=== PATIENT | female | born 1995 | race Hispanic/Latino ===

== ENCOUNTER 2018-10-30 22:25 | Emergency (ER) | payer BC, OTHER | END 2018-10-30 23:10 | disposition home or self-care (01) | LOC: EDH 22:25 | DX: F41.0 Panic disorder [episodic paroxysmal anxiety] (principal); R20.2 Paresthesia of skin | CPT/HCPCS: 99281 ==

== ENCOUNTER 2022-01-15 07:06 | Inpatient (IN) | payer MEDICAID ==
[~2022-01-15] VITALS: Ht 152.4 cm; Wt 87.5 kg
[2022-01-15] MEDS ORDERED: AMPICILLIN 2GM+NS 100ML 100 ML IV SCH (08:05)
[2022-01-15 08:13] VITALS: BP 125/67
[2022-01-15 08:22] LABS: HEMATOCRIT 37.7 % (36-48); MEAN CORPUSCULAR HEMOGLOBIN 29.2 pg (27.0-33.0); MEAN CORPUSCULAR HGB CONC 33.2 g/dL (32.0-36.0); MEAN CORPUSCULAR VOLUME 88.1 fL (79-99); RED BLOOD CELL COUNT(AUTO) 4.28 MIL/uL (4.00-5.50); RED CELL DISTRIBUTION WIDTH 13.9 % (11.0-15.5); WHITE BLOOD COUNT (AUTO) 10.5 K/uL (4.8-10.8)
[2022-01-15] MEDS ORDERED: OXYTOCIN-LR 20 UNITS/1000 ML 1,000 ML IV SCH (08:30)
[2022-01-15] MEDS: LACTATED RINGERS 1000ML 1,000 ML IV PRN ×3 (08:32→17:35)
[2022-01-15 10:12] LABS: RAPID PLASMA REAGIN NONREACTIVE (NONREACTIVE)
[2022-01-15] MEDS ORDERED: MEPERIDINE-PF 50 MG/ML SYG ONE (11:47)
[2022-01-15] MEDS ORDERED: NALOXONE HCL 0.4 MG/1 ML ML IV PRN (12:00)
[2022-01-15] MEDS ORDERED: LACTATED RINGERS 500 ML 500 ML IV PRN (12:00)
[2022-01-15] MEDS ORDERED: MEPERIDINE-PF 50 MG/ML SYG IVP PRN (12:00)
[2022-01-15] MEDS ORDERED: ROPIVACAINE 0.2% 100ML VIAL 100 ML EP SCH (12:00)
[2022-01-15] MEDS ORDERED: EPHEDRINE SULFATE 50 MG/ML AMPULE IVP PRN (12:00)
[2022-01-15] MEDS ORDERED: PROMETHAZINE HCL 25 MG/ML 1ML AMPULE IM PRN (12:00)
[2022-01-15] MEDS: AMPICILLIN 1GM+NS 50ML 50 ML IV SCH ×2 (14:00→17:35)
[2022-01-15] MEDS ORDERED: FENTANYL CITRATE PF 50 MCG/1 ML 2ML VIAL ONE (14:14)
[2022-01-15] MEDS ORDERED: LIDOCAINE 2%-EPI 1:200,000 20 ML VIAL IJ ONE (16:42)
[2022-01-15] MEDS ORDERED: ACETAMINOPHEN 325 MG TAB PO PRN (20:00)
[2022-01-15] MEDS ORDERED: LANOLIN 30GM OINTMENT TP PRN (20:00)
[2022-01-15] MEDS ORDERED: ACETAMINOPHEN WITH CODEINE 1 TAB TAB PO PRN (20:00)
[2022-01-15] MEDS ORDERED: WITCH HAZEL 1 PAD TP PRN (20:00)
[2022-01-15] MEDS ORDERED: DIPH,PERTUSS(ACELL),TET VAC/PF 0.5 ML VIAL IM PRN (20:00)
[2022-01-15] MEDS ORDERED: BENZOCAINE/LANOLIN/ALOE VERA 60 ML AEROSOL TP PRN (20:00)
[2022-01-15] MEDS: IBUPROFEN 600 MG TABLET PO PRN (20:18)
[2022-01-15] MEDS ORDERED: DOCUSATE SODIUM 100 MG CAP PO SCH (21:00)
[2022-01-15] MEDS: OXYTOCIN-LR 20 UNITS/1000 ML 1,000 ML IV SCH ×2 (21:00→21:46)
[2022-01-15 22:00] VITALS: BP 106/55
[2022-01-15 22:41] VITALS: BP 105/61
[2022-01-16 03:19] VITALS: BP 104/60
[2022-01-16] MEDS ORDERED: PREN-196 PO (03:26)
[2022-01-16] MEDS: AMPICILLIN 1GM+NS 50ML 50 ML IV SCH (04:00)
[2022-01-16 06:39] LABS: HEMATOCRIT 33.6 % (36-48); MEAN CORPUSCULAR HGB CONC 33.3 g/dL (32.0-36.0); MEAN CORPUSCULAR VOLUME 90.1 fL (79-99); RED BLOOD CELL COUNT(AUTO) 3.73 MIL/uL (4.00-5.50); RED CELL DISTRIBUTION WIDTH 13.8 % (11.0-15.5)
[2022-01-16 06:55] VITALS: BP 101/55
[2022-01-16 11:20] VITALS: BP 116/71
[2022-01-16 13:10] VITALS: BP 111/64
[2022-01-16] MEDS: IBUPROFEN 600 MG TABLET PO PRN (18:45)
[2022-01-16 19:08] VITALS: BP 110/62
== END 2022-01-16 20:30 | disposition home or self-care (01) | DRG 560 ==
LOC: EDH 07:06 → LDH 07:07 → OBSVTOIN 07:07 → EDH 07:13 → LDH 07:28 → WSH 22:30
PROVIDERS: ADMIT Obstetrics & Gynecology; ATTEND Obstetrics & Gynecology
PROC: 10E0XZZ Delivery of Products of Conception, External Approach (ICD-10-PCS; principal; 2022-01-15)
PROC: 0HQ9XZZ Repair Perineum Skin, External Approach (ICD-10-PCS; 2022-01-15)
PROC: 3E0R3BZ Introduction of Anesthetic Agent into Spinal Canal, Percutaneous Approach (ICD-10-PCS; 2022-01-15)
PROC: 00HU33Z Insertion of Infusion Device into Spinal Canal, Percutaneous Approach (ICD-10-PCS; 2022-01-15)
DX: O42.92 Full-term premature rupture of membranes, unspecified as to length of time between rupture and onset of labor (principal); Z37.0 Single live birth; O70.0 First degree perineal laceration during delivery; Z3A.38 38 weeks gestation of pregnancy; O99.824 Streptococcus B carrier state complicating childbirth
CPT/HCPCS: 36415; 85027; 86592; 86701; 86850; 86900; 86901; 87340; 87390; A4314; G0378; J0290; J2175; J2590; J2795; J3010; J3490; J7120

== ENCOUNTER 2022-05-03 07:28 | Emergency (ER) | payer MEDICAID ==
[~2022-05-03] VITALS: Ht 160 cm; Wt 63.5 kg
[~2022-05-03 07:28] MED LIST: PREN-196 PO
[2022-05-03] MEDS ORDERED: ONDANSETRON ODT 4MG TAB SL ONE (08:00)
[2022-05-03] MEDS ORDERED: MORPHINE 4 MG SYG IM ONE (08:00)
[2022-05-03 08:51] VITALS: BP 108/59
[2022-05-03] MEDS ORDERED: TRAM50TA4 PO (09:00)
[2022-05-03] MEDS ORDERED: IBUP-2070 PO (09:00)
[2022-05-03] MEDS ORDERED: CYCL10TA16 PO (09:00)
== END 2022-05-03 09:06 | disposition home or self-care (01) ==
LOC: EDH 07:28
DX: M54.50 Low back pain, unspecified (principal); M54.6 Pain in thoracic spine
CPT/HCPCS: 99283; 96372; J2270